=== PATIENT | male | born 1940 | race Caucasian/White ===

== ENCOUNTER 2022-10-02 08:10 | Outpatient (CLI) | payer MEDICARE, BC | END 2022-10-02 08:11 | disposition home or self-care (01) | LOC: CSHWCC 08:10 | PROVIDERS: ATTEND Nurse Practitioner Family | DX: T81.89XD Other complications of procedures, not elsewhere classified, subsequent encounter (principal) | CPT/HCPCS: 97139; 97607; G0463; 99203 ==

== ENCOUNTER 2022-10-09 09:37 | Outpatient (CLI) | payer MEDICARE, BC | END 2022-10-09 09:38 | disposition home or self-care (01) | LOC: CSHWCC 09:37 | PROVIDERS: ATTEND Nurse Practitioner Family | DX: T81.89XD Other complications of procedures, not elsewhere classified, subsequent encounter (principal) | CPT/HCPCS: 97605 ==

== ENCOUNTER 2023-11-06 10:45 | Outpatient (CLI) | payer MEDICARE | END 2023-11-06 10:46 | disposition home or self-care (01) | LOC: CSHSPEC 10:45 | PROVIDERS: ATTEND Family Medicine | DX: Z01.818 Encounter for other preprocedural examination (principal); R55 Syncope and collapse; Z95.0 Presence of cardiac pacemaker; G93.89 Other specified disorders of brain; R90.82 White matter disease, unspecified | CPT/HCPCS: 36415; 70553; 71045; 76376; 82565 ==